=== PATIENT | male | born 1990 | race American Indian/Alaskan Native ===

== ENCOUNTER 2021-10-06 17:18 | Emergency (ER) | payer SELFPAY ==
[2021-10-06 23:04] VITALS: BP 101/62
[2021-10-07] MEDS ORDERED: TETANUS,DIPH,PERTUSS(ACELL) VACCINE 0.5 ML SYRINGE IM ONE (01:09)
--- NOTE | 2021-10-07 03:51 | Emergency Department Report ---
ED Animal Bite HPI - General Chief Complaint: Animal Bite Stated Complaint: DOG BITE/NOT KNOWN TO PT Time Seen by Provider: 10/07/21 00:26 Source: patient Mode of arrival: Ambulatory Limitations: No Limitations - History of Present Illness MD Complaint: animal bite -: Gradual Right: Knee Animal: dog Animal Control Notified: Yes Mechanism: bite Pain Description: dull Associated Symptoms: none. denies: bleeding, loss of consciousness, cough, diaphoresis - Related Data Patient Tetanus UTD: No Previous Rx's Medication Instructions Recorded Last Taken Type Amoxicillin/K Clav Tab [Augmentin 1 tab PO Q12HR #20 tab 01/19/15 Unknown Rx 875 mg] Erythromycin [Erythromycin Ophth 0 gm OS ONCE #1 tube 01/19/15 Unknown Rx Oint] Mupirocin [Bactroban 2%] 1 applic TP TID #1 tube 01/19/15 Unknown Rx Amoxicillin/K Clav Tab [Augmentin 1 tab PO Q12HR #20 tab 10/07/21 Unknown Rx 875 mg] Allergies Allergy/AdvReac Type Severity Reaction Status Date / Time No Known Allergies Allergy Unverified 01/19/15 15:33 ED Review of Systems ROS: Stated complaint: DOG BITE/NOT KNOWN TO PT Other details as noted in HPI Comment: All other systems reviewed and negative ED Past Medical Hx - Social History Smoking Status: Current Some Day Smoker Substance Use Type: Alcohol - Medications Home Medications: Home Medications Medication Instructions Recorded Confirmed Last Taken Type Amoxicillin/K Clav Tab [Augmentin 1 tab PO Q12HR #20 tab 01/19/15 Unknown Rx 875 mg] Erythromycin [Erythromycin Ophth 0 gm OS ONCE #1 tube 01/19/15 Unknown Rx Oint] Mupirocin [Bactroban 2%] 1 applic TP TID #1 tube 01/19/15 Unknown Rx Amoxicillin/K Clav Tab [Augmentin 1 tab PO Q12HR #20 tab 10/07/21 Unknown Rx 875 mg] ED Physical Exam - General Limitations: No Limitations General appearance: alert, in no apparent distress - Head Head exam: Present: atraumatic, normocephalic - Eye Eye exam: Present: normal appearance, PERRL, EOMI. Absent: conjunctival injection Pupils: Present: normal accommodation - ENT ENT exam: Present: normal exam, normal orophraynx, mucous membranes moist - Neck Neck exam: Present: normal inspection, full ROM - Respiratory Respiratory exam: Present: normal lung sounds bilaterally. Absent: respiratory distress, wheezes, rales, rhonchi, chest wall tenderness, accessory muscle use - Cardiovascular Cardiovascular Exam: Present: regular rate, normal rhythm. Absent: systolic murmur, diastolic murmur, rubs, gallop - GI/Abdominal GI/Abdominal exam: Present: soft, normal bowel sounds - Rectal Rectal exam: Present: deferred - Extremities Exam Extremities exam: Present: normal inspection, normal capillary refill - Back Exam Back exam: Present: normal inspection. Absent: CVA tenderness (R), CVA tenderness (L) - Neurological Exam Neurological exam: Present: alert, oriented X3, CN II-XII intact, normal gait - Psychiatric Psychiatric exam: Present: normal affect, normal mood. Absent: anxious, flat affect - Skin Skin exam: Present: warm, dry, normal color, other (bite castano to right knee medial aspect in the healing phase.). Absent: rash, cyanosis, diaphoretic ED Course Vital Signs 10/06/21 10/06/21 19:29 23:03 Temperature 98.3 F 97.6 F Pulse Rate 66 60 Respiratory 18 16 Rate Blood Pressure 116/73 Blood Pressure 101/62 [Right] O2 Sat by Pulse 100 98 Oximetry Critical care attestation.: If time is entered above; I have spent that time in minutes in the direct care of this critically ill patient, excluding procedure time. ED Disposition Disposition: HOME / SELF CARE / HOMELESS Condition: Stable Instructions: VIS, Tetanus, Diphtheria (Td); Tetanus, Diphtheria, Pertussis (Tdap) - CDC, Animal Bite, Adult, [id number], Animal Bite, Adult Prescriptions: Amoxicillin/K Clav Tab [Augmentin 875 mg] 1 tab PO Q12HR #20 tab Referrals: [facility] [Provider Group] - 3-5 Days
== END 2021-10-07 04:22 | disposition home or self-care (01) ==
LOC: ED 17:18
DX: T14.8XXA Other injury of unspecified body region, initial encounter (principal); F10.20 Alcohol dependence, uncomplicated; F17.200 Nicotine dependence, unspecified, uncomplicated; W54.0XXA Bitten by dog, initial encounter; Y93.89 Activity, other specified; Y92.89 Other specified places as the place of occurrence of the external cause; Y99.8 Other external cause status
CPT/HCPCS: 90471; 90715; 99282